=== PATIENT | female | born 1960 | race Two or more races ===

== ENCOUNTER → 2025-03-21 | Outpatient (CLI) | payer MEDICARE, MEDICAID, SELFPAY ==
--- NOTE | 2025-03-21 10:30 | XR_ITS ---
Examination: Breast ultrasound, unilateral, right Date and time of exam: March 21, 2025, 1029 hours INDICATIONS: Right breast burning sensation beginning 2 weeks ago, strong family history breast cancer, sister Technique: Real-time khan scale ultrasonographic imaging performed right breast including all 4 quadrants as well as nipple retroareolar and axillary region. Findings: 12:00 nodule partially indistinct margins IMPRESSION: BI-RADS Category 4: Suspicious for malignancy Suspicious nodule 12:00 position right breast, indistinct margins, measuring 7 x 3 x 8 mm, ultrasound-guided biopsy is needed to exclude breast carcinoma
--- NOTE | 2025-03-21 11:30 | XR_ITS ---
Examination: Diagnostic digital mammography, bilateral Computer aided detection 3-D breast Tomosynthesis, bilateral Date and time of exam: March 21, 2025, 1046 hours INDICATIONS: Strong family history breast cancer, sister, right breast pain 2 weeks Technique: Nonmagnified MLO, CC views of the breasts to been obtained, reconstructed from 3-D Tomosynthesis images. R2 computer aided detection program utilized for evaluation of suspicious masses and/or abnormal calcifications. 3-D Tomosynthesis images obtained. Findings: The breasts are heterogeneously dense, which may obscure small masses 8mm nodular asymmetry 12:00 position right breast, better depicted on the patient's right breast sonogram today Impression: BI-RADS Category 4: Suspicious for malignancy Suspicious mass 12:00 position left breast, better demonstrated on the patient's right breast sonogram today, biopsy is needed to exclude breast carcinoma, this mass is amenable to ultrasound-guided breast biopsy for diagnosis
== END | disposition home or self-care (01) ==
LOC: CDIM 10:16
DX: R92.343 Mammographic extreme density, bilateral breasts (principal); N63.25 Unspecified lump in the left breast, overlapping quadrants; Z80.3 Family history of malignant neoplasm of breast
CPT/HCPCS: 76641; 77062; 77066; G0279